=== PATIENT | male | born 1965 | race American Indian/Alaskan Native ===

== ENCOUNTER 2018-05-06 23:14 | Inpatient (IN) | payer MEDICAID ==
[2018-05-06] MEDS ORDERED: HYDROmorphone 1 MG/ML Syringe IVPUSH ONE (23:43)
--- NOTE | 2018-05-07 01:20 | EDM.PDOC ---
ED HPI GENERAL MEDICAL PROBLEM - General Chief Complaint: Abdominal Pain Stated Complaint: MED[facility] Time Seen by Provider: 05/06/18 23:20 Source of Information: Reports: Patient History Limitations: Reports: No Limitations - History of Present Illness INITIAL COMMENTS - FREE TEXT/NARRATIVE: pt arrived with severe abdomanal pain. This came on very suddenly this evening and he has had severe pain for about 4 hours. He is much more comfortable at this time. Onset: Today, Sudden Duration: Hour(s): Location: Reports: Abdomen Associated Symptoms: Reports: Nausea/Vomiting - Related Data Allergies Allergy/AdvReac Type Severity Reaction Status Date / Time ibuprofen Allergy Edema Verified 05/06/18 23:19 Home Meds: Home Meds Metoprolol Succinate [Toprol XL 100mg] 100 mg PO DAILY 05/06/18 [History] Omeprazole 20 mg PO DAILY 05/06/18 [History] amLODIPine [Norvasc] 2.5 mg PO DAILY 05/06/18 [History] clonazePAM [Klonopin] 0.5 mg PO DAILY PRN 05/06/18 [History] Past Medical History HEENT History: Reports: Hard of Hearing Other HEENT History: deaf left ear, constant nasal drip Cardiovascular History: Reports: High Cholesterol, Hypertension Other Cardiovascular History: abnormal EKG wanted him to do stress test on Sunday last week Other Respiratory History: easily fatigues and SOB with exertion Gastrointestinal History: Reports: GERD Musculoskeletal History: Reports: Arthritis, Other (See Below) Other Musculoskeletal History: fx tibia and fibula with pinning and plate Neurological History: Reports: Concussion Endocrine/Metabolic History: Reports: Obesity/BMI 30+ - Past Surgical History Cardiovascular Surgical History: Reports: None Other Musculoskeletal Surgeries/Procedures:: right shoulder pain, left hip pain Social & Family History - Family History Family Medical History: Noncontributory - Tobacco Use Smoking Status *Q: Former Smoker Used Tobacco, but Quit: Yes Month/Year Tobacco Last Used: 15 years Second Hand Smoke Exposure: Yes - Caffeine Use Caffeine Use: Reports: Coffee - Alcohol Use Days Per Week of Alcohol Use: 7 Number of Drinks Per Day: 5 Total Drinks Per Week: 35 - Recreational Drug Use Recreational Drug Use: No ED ROS GENERAL - Review of Systems Review Of Systems: See Below Constitutional: Reports: Fever, Chills, Malaise HEENT: Reports: No Symptoms Respiratory: Reports: No Symptoms Cardiovascular: Reports: No Symptoms Endocrine: Reports: No Symptoms GI/Abdominal: Reports: Abdominal Pain, Other ( sudden onset and very severe pain ) : Reports: No Symptoms ED EXAM, GI/ABD - Physical Exam Exam: See Below Text/Narrative:: pt arrived with very severe upper abdomanal pain. He had felt ok earlier in the pm/ He had chicken and rice for supper and was helping get some laundry done. He developed severe pain and this did not relent for about 4 hours. He is quite comfortable at this time. Exam Limited By: No Limitations General Appearance: Alert, Severe Distress Ears: Normal TMs Nose: Normal Inspection Throat/Mouth: Normal Inspection Head: Atraumatic Neck: Normal Inspection Respiratory/Chest: No Respiratory Distress Cardiovascular: Regular Rate, Rhythm GI/Abdominal Exam: Other ( very tender in the upper abdoman. ) (Male) Exam: Deferred Rectal (Males) Exam: Deferred Back Exam: Normal Inspection Extremities: Normal Inspection Course - Vital Signs Last Recorded V/S: Last Vital Signs Temp 37.6 C 05/07/18 06:07 Pulse 105 H 05/07/18 06:07 Resp 14 05/07/18 06:07 BP 109/64 05/07/18 06:07 Pulse Ox 92 L 05/07/18 02:33 - Orders/Labs/Meds Orders: Active Orders 24 hr Category Date Time Status Abdomen Ltd [US] Stat Exams 05/07/18 00:15 Taken Abdomen Pelvis w Cont [CT] Stat Exams 05/07/18 01:23 Taken Abdomen Series w Chest 1V [CR] Urgent Exams 05/07/18 00:01 Taken BABESIA MICROTI ANTIBODY PANEL Stat Lab 05/07/18 01:08 Stop Req CULTURE BLOOD [BC] Urgent Lab 05/07/18 03:00 Received CULTURE BLOOD [BC] Urgent Lab 05/07/18 03:05 Received DRUG SCREEN, URINE [URCHEM] Stat Lab 05/07/18 00:03 Ordered E. CHAFFEENSIS-HME (MONOCYTIC) Stat Lab 05/07/18 01:08 Stop Req LYME, TOTAL AB TEST/REFLEX Stat Lab 05/07/18 01:08 Stop Req UA W/MICROSCOPIC [URIN] Urgent Lab 05/07/18 00:05 Ordered Sodium Chloride 0.9% [Normal Saline] 1,000 ml Med 05/07/18 02:00 Active IV STAT Blood Culture x2 Reflex Set [OM.PC] Urgent Oth 05/07/18 02:53 Ordered Medication Orders Sodium Chloride (Normal Saline) 1,000 mls @ 300 mls/hr IV STAT JOSE Last Admin: 05/07/18 05:08 Dose: 300 mls/hr Infusion: 05/07/18 05:08 Dose: 300 mls/hr Admin: 05/07/18 02:00 Dose: 300 mls/hr Labs: Laboratory Tests 05/06/18 05/06/18 05/06/18 Range/Units 23:29 23:29 23:29 WBC 12.2 H (4.5-11.0) K/uL RBC 5.12 (4.30-5.90) M/uL Hgb 16.7 H (12.0-15.0) g/dL Hct 47.6 (40.0-54.0) % MCV 93 (80-98) fL MCH 33 H (27-31) pg MCHC 35 (32-36) % Plt Count 151 (150-400) K/uL Neut % (Auto) 93 H (36-66) % Lymph % (Auto) 6 L (24-44) % Republic % (Auto) 1 L (2-6) % Eos % (Auto) 0 L (2-4) % Baso % (Auto) 0 (0-1) % Sodium 138 L (140-148) mmol/L Potassium 3.9 (3.6-5.2) mmol/L Chloride 100 (100-108) mmol/L Carbon Dioxide 23 (21-32) mmol/L Anion Gap 18.9 H (5.0-14.0) mmol/L BUN 9 (7-18) mg/dL Creatinine 1.0 (0.8-1.3) mg/dL Est Cr Clr Drug Dosing 89.22 mL/min Estimated GFR (MDRD) > 60 (>60) Glucose 154 H (74-106) mg/dL Calcium 8.7 (8.5-10.1) mg/dL Total Bilirubin 2.4 H (0.2-1.0) mg/dL AST 268 H (15-37) U/L ALT 184 H (12-78) U/L Alkaline Phosphatase 126 H (46-116) U/L C-Reactive Protein (0.0-0.3) mg/dL Total Protein 7.9 (6.4-8.2) g/dL Albumin 3.8 (3.4-5.0) g/dL Globulin 4.1 H (2.3-3.5) g/dL Albumin/Globulin Ratio 0.9 L (1.2-2.2) Amylase 55 (25-115) U/L Lipase 130 (73-393) U/L Urine Color Urine Appearance Urine pH (4.5-8.0) Ur Specific Lackey (1.008-1.030) Urine Protein (NEGATIVE) mg/dL Urine Glucose (UA) (NEGATIVE) mg/dL Urine Ketones (NEGATIVE) mg/dL Urine Occult Blood (NEGATIVE) Urine Nitrite (NEGAITVE) Urine Bilirubin (NEGATIVE) Urine Urobilinogen (NORMAL) mg/dL Ur Leukocyte Esterase (NEGATIVE) Urine RBC (0-5) Urine WBC (0-5) Ur Epithelial Cells Amorphous Sediment Urine Bacteria Urine Mucus Urine Opiates Screen (NEGATIVE) Ur Oxycodone Screen (NEGATIVE) Urine Methadone Screen (NEGATIVE) Ur Propoxyphene Screen (NEGATIVE) Ur Barbiturates Screen (NEGATIVE) Ur Tricyclics Screen (NEGATIVE) Ur Phencyclidine Scrn (NEGATIVE) Ur Amphetamine Screen (NEGATIVE) U Methamphetamines Scrn (NEGATIVE) Urine MDMA Screen (NEGATIVE) U Benzodiazepines Scrn (NEGATIVE) U Cocaine Metab Screen (NEGATIVE) U Marijuana (THC) Screen (NEGATIVE) Ethyl Alcohol mg/dL 05/07/18 05/07/18 05/07/18 Range/Units 00:03 00:03 00:05 WBC (4.5-11.0) K/uL RBC (4.30-5.90) M/uL Hgb (12.0-15.0) g/dL Hct (40.0-54.0) % MCV (80-98) fL MCH (27-31) pg MCHC (32-36) % Plt Count (150-400) K/uL Neut % (Auto) (36-66) % Lymph % (Auto) (24-44) % Republic % (Auto) (2-6) % Eos % (Auto) (2-4) % Baso % (Auto) (0-1) % Sodium (140-148) mmol/L Potassium (3.6-5.2) mmol/L Chloride (100-108) mmol/L Carbon Dioxide (21-32) mmol/L Anion Gap (5.0-14.0) mmol/L BUN (7-18) mg/dL Creatinine (0.8-1.3) mg/dL Est Cr Clr Drug Dosing mL/min Estimated GFR (MDRD) (>60) Glucose (74-106) mg/dL Calcium (8.5-10.1) mg/dL Total Bilirubin (0.2-1.0) mg/dL AST (15-37) U/L ALT (12-78) U/L Alkaline Phosphatase (46-116) U/L C-Reactive Protein (0.0-0.3) mg/dL Total Protein (6.4-8.2) g/dL Albumin (3.4-5.0) g/dL Globulin (2.3-3.5) g/dL Albumin/Globulin Ratio (1.2-2.2) Amylase (25-115) U/L Lipase (73-393) U/L Urine Color Yellow Urine Appearance Clear Urine pH 5.0 (4.5-8.0) Ur Specific Lackey 1.020 (1.008-1.030) Urine Protein Negative (NEGATIVE) mg/dL Urine Glucose (UA) Normal (NEGATIVE) mg/dL Urine Ketones Negative (NEGATIVE) mg/dL Urine Occult Blood Negative (NEGATIVE) Urine Nitrite Negative (NEGAITVE) Urine Bilirubin Small (NEGATIVE) Urine Urobilinogen 4 (NORMAL) mg/dL Ur Leukocyte Esterase Negative (NEGATIVE) Urine RBC 0-5 (0-5) Urine WBC 0-5 (0-5) Ur Epithelial Cells Few Amorphous Sediment Not seen Urine Bacteria Few Urine Mucus Not seen Urine Opiates Screen Presumptive positive H (NEGATIVE) Ur Oxycodone Screen Negative (NEGATIVE) Urine Methadone Screen Negative (NEGATIVE) Ur Propoxyphene Screen Negative (NEGATIVE) Ur Barbiturates Screen Negative (NEGATIVE) Ur Tricyclics Screen Negative (NEGATIVE) Ur Phencyclidine Scrn Negative (NEGATIVE) Ur Amphetamine Screen Negative (NEGATIVE) U Methamphetamines Scrn Presumptive positive H (NEGATIVE) Urine MDMA Screen Negative (NEGATIVE) U Benzodiazepines Scrn Negative (NEGATIVE) U Cocaine Metab Screen Negative (NEGATIVE) U Marijuana (THC) Screen Negative (NEGATIVE) Ethyl Alcohol 132 mg/dL 07/24/18 Range/Units 02:54 WBC (4.5-11.0) K/uL RBC (4.30-5.90) M/uL Hgb (12.0-15.0) g/dL Hct (40.0-54.0) % MCV (80-98) fL MCH (27-31) pg MCHC (32-36) % Plt Count (150-400) K/uL Neut % (Auto) (36-66) % Lymph % (Auto) (24-44) % Republic % (Auto) (2-6) % Eos % (Auto) (2-4) % Baso % (Auto) (0-1) % Sodium (140-148) mmol/L Potassium (3.6-5.2) mmol/L Chloride (100-108) mmol/L Carbon Dioxide (21-32) mmol/L Anion Gap (5.0-14.0) mmol/L BUN (7-18) mg/dL Creatinine (0.8-1.3) mg/dL Est Cr Clr Drug Dosing mL/min Estimated GFR (MDRD) (>60) Glucose (74-106) mg/dL Calcium (8.5-10.1) mg/dL Total Bilirubin (0.2-1.0) mg/dL AST (15-37) U/L ALT (12-78) U/L Alkaline Phosphatase (46-116) U/L C-Reactive Protein 0.26 (0.0-0.3) mg/dL Total Protein (6.4-8.2) g/dL Albumin (3.4-5.0) g/dL Globulin (2.3-3.5) g/dL Albumin/Globulin Ratio (1.2-2.2) Amylase (25-115) U/L Lipase (73-393) U/L Urine Color Urine Appearance Urine pH (4.5-8.0) Ur Specific Lackey (1.008-1.030) Urine Protein (NEGATIVE) mg/dL Urine Glucose (UA) (NEGATIVE) mg/dL Urine Ketones (NEGATIVE) mg/dL Urine Occult Blood (NEGATIVE) Urine Nitrite (NEGAITVE) Urine Bilirubin (NEGATIVE) Urine Urobilinogen (NORMAL) mg/dL Ur Leukocyte Esterase (NEGATIVE) Urine RBC (0-5) Urine WBC (0-5) Ur Epithelial Cells Amorphous Sediment Urine Bacteria Urine Mucus Urine Opiates Screen (NEGATIVE) Ur Oxycodone Screen (NEGATIVE) Urine Methadone Screen (NEGATIVE) Ur Propoxyphene Screen (NEGATIVE) Ur Barbiturates Screen (NEGATIVE) Ur Tricyclics Screen (NEGATIVE) Ur Phencyclidine Scrn (NEGATIVE) Ur Amphetamine Screen (NEGATIVE) U Methamphetamines Scrn (NEGATIVE) Urine MDMA Screen (NEGATIVE) U Benzodiazepines Scrn (NEGATIVE) U Cocaine Metab Screen (NEGATIVE) U Marijuana (THC) Screen (NEGATIVE) Ethyl Alcohol mg/dL Meds: Medications Generic Name Dose Route Start Last Admin Trade Name Freq PRN Reason Stop Dose Admin Sodium Chloride 1,000 mls @ 300 mls/hr 05/07/18 02:00 05/07/18 05:08 Normal Saline IV 300 mls/hr STAT JOSE Administration Discontinued Medications Generic Name Dose Route Start Last Admin Trade Name Freq PRN Reason Stop Dose Admin Hydromorphone HCl 1 mg 05/06/18 23:43 05/06/18 23:54 Dilaudid IVPUSH 05/06/18 23:44 1 mg ONETIME ONE Administration Sodium Chloride 85 mls @ 4 mls/sec 05/07/18 01:32 05/07/18 01:48 Normal Saline IV 05/07/18 01:33 4 mls/sec ASDIRECTED STA Administration Aztreonam 1 gm/ Sodium 50 mls @ 100 mls/hr 05/07/18 02:55 05/07/18 03:23 Chloride IV 05/07/18 03:24 100 mls/hr ONETIME ONE Administration Clindamycin Phosphate 300 mg/ 52 mls @ 150 mls/hr 05/07/18 02:55 05/07/18 03: 04 Sodium Chloride IV 05/07/18 03:15 150 mls/hr ONETIME ONE Administration Iopamidol 150 ml 05/07/18 01:32 05/07/18 01:48 Isovue-300 (61%) IV 05/07/18 01:33 150 ml . DIRECTED STA Administration - Re-Assessments/Exams Free Text/Narrative Re-Assessment/Exam: 05/07/18 03:00 us showed a borderline GB wall thickening, Gb is large. No definite stones were seen. He has evidence of a fatty liver. Departure - Departure Time of Disposition: 06:55 Disposition: Admitted As Inpatient 66 Condition: Fair Clinical Impression: Acute cholecystitis, Elevated liver enzymes - Discharge Information Referrals: PCP,None [Primary Care Provider] - Forms: ED Department Discharge Care Plan Goals: admit to Dr Rust - My Orders Last 24 Hours: My Active Orders 05/07/18 00:01 Abdomen Series w Chest 1V [CR] Urgent 05/07/18 00:03 DRUG SCREEN, URINE [URCHEM] Stat 05/07/18 00:05 UA W/MICROSCOPIC [URIN] Urgent 05/07/18 00:15 Abdomen Ltd [US] Stat 05/07/18 01:08 BABESIA MICROTI ANTIBODY PANEL Stat E. CHAFFEENSIS-HME (MONOCYTIC) Stat LYME, TOTAL AB TEST/REFLEX Stat 05/07/18 01:23 Abdomen Pelvis w Cont [CT] Stat 05/07/18 02:00 Sodium Chloride 0.9% [Normal Saline] 1,000 ml IV STAT 05/07/18 02:53 Blood Culture x2 Reflex Set [OM.PC] Urgent 05/07/18 03:00 CULTURE BLOOD [BC] Urgent 05/07/18 03:05 CULTURE BLOOD [BC] Urgent - Assessment/Plan Last 24 Hours: My Active Orders 05/07/18 00:01 Abdomen Series w Chest 1V [CR] Urgent 05/07/18 00:03 DRUG SCREEN, URINE [URCHEM] Stat 05/07/18 00:05 UA W/MICROSCOPIC [URIN] Urgent 05/07/18 00:15 Abdomen Ltd [US] Stat 05/07/18 01:08 BABESIA MICROTI ANTIBODY PANEL Stat E. CHAFFEENSIS-HME (MONOCYTIC) Stat LYME, TOTAL AB TEST/REFLEX Stat 05/07/18 01:23 Abdomen Pelvis w Cont [CT] Stat 05/07/18 02:00 Sodium Chloride 0.9% [Normal Saline] 1,000 ml IV STAT 05/07/18 02:53 Blood Culture x2 Reflex Set [OM.PC] Urgent 05/07/18 03:00 CULTURE BLOOD [BC] Urgent 05/07/18 03:05 CULTURE BLOOD [BC] Urgent
[2018-05-07] MEDS ORDERED: Iopamidol 612 MG/ML 150 ML Bottle IV STA (01:32)
[2018-05-07] MEDS: Sodium Chloride 0.9% 1,000 ML IV SCH ×2 (02:00→05:08)
[2018-05-07] MEDS: Dextrose 5%-Lactated Ringers 1,000 ML IV SCH ×2 (08:00→16:45)
[2018-05-07] MEDS ORDERED: HYDROmorphone/Normal Saline 15 MG/30 ML PCA IV PRN (08:22)
[2018-05-07] MEDS ORDERED: Naloxone 0.4 MG/ML SDV IV PRN (08:22)
[2018-05-07] MEDS ORDERED: ClonazePAM 0.5 MG Tab PO PRN (08:23)
[2018-05-07] MEDS ORDERED: Ondansetron 4 MG/2 ML SDV IVPUSH PRN (08:23)
--- NOTE | 2018-05-07 08:52 | CR ---
Abdomen Series w Chest 1V CLINICAL HISTORY: Upper abdominal pain FINDINGS: There is breathing motion artifact. There is less than optimal inspiration which exaggerate s lung markings and heart size. No free air is seen. The there are scattered air-filled loops of smal l bowel in a nonspecific pattern. IMPRESSION: Scattered air-filled loops of small bowel in a nonspecific pattern Less than optimal study with poor respiratory level as well as breathing motion artifact
--- NOTE | 2018-05-07 08:57 | US ---
Abdomen Ltd CLINICAL HISTORY: Upper abdominal pain COMPARISON: None. TECHNIQUE: Real-time images were obtained through the right upper quadrant. FINDINGS: The liver is free of mass or biliary dilatation. There is increased parenchymal echogenicit y. The gallbladder is distended. There is some biliary sludge. No wall thickening is identified.. The common bile duct measures 8 mm. The pancreas is is obscured by bowel gas. The right kidney has a nor mal contour. The IVC is obscured. Impression:: Mildly distended gallbladder with some biliary sludge. No stones are seen Common bile duct is upper limits of normal size Pancreas and distal CBD is obscured Fatty infiltration of the liver
[2018-05-07] MEDS ORDERED: Metoprolol Succinate 50 MG Tab.ER PO SCH (09:00)
[2018-05-07] MEDS: Pantoprazole 40 MG Vial IV SCH (09:56)
[2018-05-07] MEDS: amLODIPine 5 MG Tab PO SCH (09:57)
[2018-05-07] MEDS: Ampicillin/Sulbactam Na 3 GM in Sodium Chloride 0.9% 100 ML IV SCH ×3 (09:59→21:11)
[2018-05-07] MEDS ORDERED: cloNIDine 0.1 MG Tab PO SCH (12:00)
--- NOTE | 2018-05-07 12:05 | PCM.CONS ---
H&P History of Present Illness - General Date of Service: 05/07/18 Admit Problem/Dx: Admission Diagnosis/Problem Admission Diagnosis/Problem Abdominal pain Source of Information: Patient, RN Notes Reviewed History Limitations: Reports: No Limitations - History of Present Illness Initial Comments - Free Text/Narative: Mr. Amezquita is a 52-year-old gentleman who I been asked to see by Dr. Rust for further suggestions concerning evaluation and management of abdominal pain. He reports that recently he has noted increased shortness of breath with exertion and decrease in his exercise tolerance. He been seen and evaluated in [place] at the [facility] clinic, exercise Cardiolite study had been recommended but has not yet been obtained. Yesterday he reported onset of lower chest pain in the early evening. Pain became more intense and more centered in the upper abdomen. It was associated with nausea but no vomiting. Pain was initially described as a burning sensation that and became a more intense ache with cramping quality. Pain is since resolved and not recurred since admission. He still has his gallbladder, ultrasound and CT showed evidence of distention but no obvious wall thickening. He also reports a history of ongoing alcohol use at least 8 cans of beer per day and previous history of alcohol withdrawal. - Related Data Allergies/Adverse Reactions: Allergies Allergy/AdvReac Type Severity Reaction Status Date / Time ibuprofen Allergy Edema Verified 05/06/18 23:19 Home Medications: Home Meds Metoprolol Succinate [Toprol XL 100mg] 100 mg PO DAILY 05/06/18 [History] Omeprazole 20 mg PO DAILY 05/06/18 [History] amLODIPine [Norvasc] 2.5 mg PO DAILY 05/06/18 [History] clonazePAM [Klonopin] 0.5 mg PO DAILY PRN 05/06/18 [History] cloNIDine [Catapres] 0.1 mg PO WEEKLY 05/07/18 [History] Past Medical History HEENT History: Reports: Hard of Hearing Other HEENT History: deaf left ear, constant nasal drip Cardiovascular History: Reports: High Cholesterol, Hypertension Other Cardiovascular History: abnormal EKG wanted him to do stress test on Sunday last week Other Respiratory History: easily fatigues and SOB with exertion Gastrointestinal History: Reports: GERD Musculoskeletal History: Reports: Arthritis, Other (See Below) Other Musculoskeletal History: fx tibia and fibula with pinning and plate Neurological History: Reports: Concussion Endocrine/Metabolic History: Reports: Obesity/BMI 30+ - Infectious Disease History Infectious Disease History: Reports: Chicken Pox, Measles - Past Surgical History Cardiovascular Surgical History: Reports: None Other Musculoskeletal Surgeries/Procedures:: right shoulder pain, left hip pain Social & Family History - Family History Family Medical History: Noncontributory Cardiac: Reports: Heart Failure GI: Reports: Cholelithiasis Endocrine/Metabolic: Reports: Diabetes, type II - Tobacco Use Smoking Status *Q: Never Smoker Used Tobacco, but Quit: Yes Month/Year Tobacco Last Used: 15 years Second Hand Smoke Exposure: No - Caffeine Use Caffeine Use: Reports: Soda - Alcohol Use Days Per Week of Alcohol Use: 7 Number of Drinks Per Day: 9 Total Drinks Per Week: 63 Date of Last Drink: 05/06/18 Time of Last Drink: 18:30 - Recreational Drug Use Recreational Drug Use: No H&P Review of Systems - Review of Systems: Review Of Systems: See Below General: Reports: Fever, Chills, Weakness Pulmonary: Reports: Shortness of Breath. Denies: Wheezing, Pleuritic Chest Pain , Cough, Sputum, Hemoptysis Cardiovascular: Reports: Dyspnea on Exertion. Denies: Chest Pain, Palpitations , Orthopnea, PND, Edema, Lightheadedness Gastrointestinal: Reports: Abdominal Pain, Distension, Nausea. Denies: Black Stool, Bloody Stool, Constipation, Diarrhea, Difficulty Swallowing, Hematemesis , Vomiting Genitourinary: Reports: No Symptoms Skin: Reports: No Symptoms Exam - Exam Exam: See Below - Vital Signs Vital Signs: Last Vital Signs Temp 100 F 05/07/18 11:34 Pulse 94 05/07/18 11:34 Resp 18 05/07/18 11:34 BP 139/79 05/07/18 11:34 Pulse Ox 95 05/07/18 11:34 Weight: 272 lb 3.205 oz - Exam General: Alert, Oriented, Cooperative, Mild Distress Neck: Supple, Trachea Midline, +2 Carotid Pulse wo Bruit Lungs: Clear to Auscultation, Normal Respiratory Effort Cardiovascular: Regular Rate, Regular Rhythm, Normal S1, Normal S2. No: Systolic Murmur, Diastolic Murmur GI/Abdominal Exam: Soft, No Organomegaly, Distended, Tender. No: Guarding, Rigid, Rebound Back Exam: Normal Inspection, Full Range of Motion Extremities: Non-Tender, No Pedal Edema Skin: Warm, Dry, Intact - Patient Data Lab Results Last 24 hrs: Laboratory Results - last 24 hr 05/06/18 05/06/18 05/06/18 Range/Units 23:29 23:29 23:29 WBC 12.2 H (4.5-11.0) K/uL RBC 5.12 (4.30-5.90) M/uL Hgb 16.7 H (12.0-15.0) g/dL Hct 47.6 (40.0-54.0) % MCV 93 (80-98) fL MCH 33 H (27-31) pg MCHC 35 (32-36) % Plt Count 151 (150-400) K/uL Neut % (Auto) 93 H (36-66) % Lymph % (Auto) 6 L (24-44) % [place] % (Auto) 1 L (2-6) % Eos % (Auto) 0 L (2-4) % Baso % (Auto) 0 (0-1) % Sodium 138 L (140-148) mmol/L Potassium 3.9 (3.6-5.2) mmol/L Chloride 100 (100-108) mmol/L Carbon Dioxide 23 (21-32) mmol/L Anion Gap 18.9 H (5.0-14.0) mmol/L BUN 9 (7-18) mg/dL Creatinine 1.0 (0.8-1.3) mg/dL Est Cr Clr Drug Dosing 89.22 mL/min Estimated GFR (MDRD) > 60 (>60) Glucose 154 H (74-106) mg/dL Calcium 8.7 (8.5-10.1) mg/dL Phosphorus (2.5-4.9) mg/dL Magnesium (1.8-2.4) mg/dL Total Bilirubin 2.4 H (0.2-1.0) mg/dL AST 268 H (15-37) U/L ALT 184 H (12-78) U/L Alkaline Phosphatase 126 H (46-116) U/L C-Reactive Protein (0.0-0.3) mg/dL Total Protein 7.9 (6.4-8.2) g/dL Albumin 3.8 (3.4-5.0) g/dL Globulin 4.1 H (2.3-3.5) g/dL Albumin/Globulin Ratio 0.9 L (1.2-2.2) Amylase 55 (25-115) U/L Lipase 130 (73-393) U/L Urine Color Urine Appearance Urine pH (4.5-8.0) Ur Specific [place] (1.008-1.030) Urine Protein (NEGATIVE) mg/dL Urine Glucose (UA) (NEGATIVE) mg/dL Urine Ketones (NEGATIVE) mg/dL Urine Occult Blood (NEGATIVE) Urine Nitrite (NEGAITVE) Urine Bilirubin (NEGATIVE) Urine Urobilinogen (NORMAL) mg/dL Ur Leukocyte Esterase (NEGATIVE) Urine RBC (0-5) Urine WBC (0-5) Ur Epithelial Cells Amorphous Sediment Urine Bacteria Urine Mucus Urine Opiates Screen (NEGATIVE) Ur Oxycodone Screen (NEGATIVE) Urine Methadone Screen (NEGATIVE) Ur Propoxyphene Screen (NEGATIVE) Ur Barbiturates Screen (NEGATIVE) Ur Tricyclics Screen (NEGATIVE) Ur Phencyclidine Scrn (NEGATIVE) Ur Amphetamine Screen (NEGATIVE) U Methamphetamines Scrn (NEGATIVE) Urine MDMA Screen (NEGATIVE) U Benzodiazepines Scrn (NEGATIVE) U Cocaine Metab Screen (NEGATIVE) U Marijuana (THC) Screen (NEGATIVE) Ethyl Alcohol mg/dL 05/07/18 05/07/18 05/07/18 Range/Units 00:03 00:03 00:05 WBC (4.5-11.0) K/uL RBC (4.30-5.90) M/uL Hgb (12.0-15.0) g/dL Hct (40.0-54.0) % MCV (80-98) fL MCH (27-31) pg MCHC (32-36) % Plt Count (150-400) K/uL Neut % (Auto) (36-66) % Lymph % (Auto) (24-44) % [place] % (Auto) (2-6) % Eos % (Auto) (2-4) % Baso % (Auto) (0-1) % Sodium (140-148) mmol/L Potassium (3.6-5.2) mmol/L Chloride (100-108) mmol/L Carbon Dioxide (21-32) mmol/L Anion Gap (5.0-14.0) mmol/L BUN (7-18) mg/dL Creatinine (0.8-1.3) mg/dL Est Cr Clr Drug Dosing mL/min Estimated GFR (MDRD) (>60) Glucose (74-106) mg/dL Calcium (8.5-10.1) mg/dL Phosphorus (2.5-4.9) mg/dL Magnesium (1.8-2.4) mg/dL Total Bilirubin (0.2-1.0) mg/dL AST (15-37) U/L ALT (12-78) U/L Alkaline Phosphatase (46-116) U/L C-Reactive Protein (0.0-0.3) mg/dL Total Protein (6.4-8.2) g/dL Albumin (3.4-5.0) g/dL Globulin (2.3-3.5) g/dL Albumin/Globulin Ratio (1.2-2.2) Amylase (25-115) U/L Lipase (73-393) U/L Urine Color Yellow Urine Appearance Clear Urine pH 5.0 (4.5-8.0) Ur Specific [place] 1.020 (1.008-1.030) Urine Protein Negative (NEGATIVE) mg/dL Urine Glucose (UA) Normal (NEGATIVE) mg/dL Urine Ketones Negative (NEGATIVE) mg/dL Urine Occult Blood Negative (NEGATIVE) Urine Nitrite Negative (NEGAITVE) Urine Bilirubin Small (NEGATIVE) Urine Urobilinogen 4 (NORMAL) mg/dL Ur Leukocyte Esterase Negative (NEGATIVE) Urine RBC 0-5 (0-5) Urine WBC 0-5 (0-5) Ur Epithelial Cells Few Amorphous Sediment Not seen Urine Bacteria Few Urine Mucus Not seen Urine Opiates Screen Presumptive positive H (NEGATIVE) Ur Oxycodone Screen Negative (NEGATIVE) Urine Methadone Screen Negative (NEGATIVE) Ur Propoxyphene Screen Negative (NEGATIVE) Ur Barbiturates Screen Negative (NEGATIVE) Ur Tricyclics Screen Negative (NEGATIVE) Ur Phencyclidine Scrn Negative (NEGATIVE) Ur Amphetamine Screen Negative (NEGATIVE) U Methamphetamines Scrn Presumptive positive H (NEGATIVE) Urine MDMA Screen Negative (NEGATIVE) U Benzodiazepines Scrn Negative (NEGATIVE) U Cocaine Metab Screen Negative (NEGATIVE) U Marijuana (THC) Screen Negative (NEGATIVE) Ethyl Alcohol 132 mg/dL 05/07/18 05/07/18 Range/Units 02:54 08:20 WBC (4.5-11.0) K/uL RBC (4.30-5.90) M/uL Hgb (12.0-15.0) g/dL Hct (40.0-54.0) % MCV (80-98) fL MCH (27-31) pg MCHC (32-36) % Plt Count (150-400) K/uL Neut % (Auto) (36-66) % Lymph % (Auto) (24-44) % [place] % (Auto) (2-6) % Eos % (Auto) (2-4) % Baso % (Auto) (0-1) % Sodium (140-148) mmol/L Potassium (3.6-5.2) mmol/L Chloride (100-108) mmol/L Carbon Dioxide (21-32) mmol/L Anion Gap (5.0-14.0) mmol/L BUN (7-18) mg/dL Creatinine (0.8-1.3) mg/dL Est Cr Clr Drug Dosing mL/min Estimated GFR (MDRD) (>60) Glucose (74-106) mg/dL Calcium (8.5-10.1) mg/dL Phosphorus 1.4 L (2.5-4.9) mg/dL Magnesium 1.3 L (1.8-2.4) mg/dL Total Bilirubin (0.2-1.0) mg/dL AST (15-37) U/L ALT (12-78) U/L Alkaline Phosphatase (46-116) U/L C-Reactive Protein 0.26 (0.0-0.3) mg/dL Total Protein (6.4-8.2) g/dL Albumin (3.4-5.0) g/dL Globulin (2.3-3.5) g/dL Albumin/Globulin Ratio (1.2-2.2) Amylase (25-115) U/L Lipase (73-393) U/L Urine Color Urine Appearance Urine pH (4.5-8.0) Ur Specific [place] (1.008-1.030) Urine Protein (NEGATIVE) mg/dL Urine Glucose (UA) (NEGATIVE) mg/dL Urine Ketones (NEGATIVE) mg/dL Urine Occult Blood (NEGATIVE) Urine Nitrite (NEGAITVE) Urine Bilirubin (NEGATIVE) Urine Urobilinogen (NORMAL) mg/dL Ur Leukocyte Esterase (NEGATIVE) Urine RBC (0-5) Urine WBC (0-5) Ur Epithelial Cells Amorphous Sediment Urine Bacteria Urine Mucus Urine Opiates Screen (NEGATIVE) Ur Oxycodone Screen (NEGATIVE) Urine Methadone Screen (NEGATIVE) Ur Propoxyphene Screen (NEGATIVE) Ur Barbiturates Screen (NEGATIVE) Ur Tricyclics Screen (NEGATIVE) Ur Phencyclidine Scrn (NEGATIVE) Ur Amphetamine Screen (NEGATIVE) U Methamphetamines Scrn (NEGATIVE) Urine MDMA Screen (NEGATIVE) U Benzodiazepines Scrn (NEGATIVE) U Cocaine Metab Screen (NEGATIVE) U Marijuana (THC) Screen (NEGATIVE) Ethyl Alcohol mg/dL Result Diagrams: 05/06/18 23:29 05/06/18 23:29 Consult PN Assessment/Plan Problem List Initiated/Reviewed/Updated: Yes My Orders Last 24 Hours: My Active Orders 05/07/18 12:00 Gabapentin [Neurontin] 400 mg PO Q8H cloNIDine [Catapres] 0.1 mg PO WEEKLY Plan: ASSESSMENT AND RECOMMENDATIONS UPPER ABDOMINAL PAIN-most likely secondary to gallbladder disease, also possible would be gastric or duodenal ulcer or inflammation. -CCK stimulated HIDA scan in a.m. -Protonix 40 mg IV daily DECREASED EXERCISE TOLERANCE-recent history of shortness of breath with decreased exercise tolerance. He does have risk factors for coronary artery disease including hypertension, hypercholesterolemia, and a positive family history. Would plan to hold on any consideration of surgery until cardiac status has been further evaluated. -Exercise Cardiolite study ELEVATED LIVER TESTS-patient reports that they have been elevated on previous laboratory draws, will attempt to obtain lab results from recent clinic visits. Possibly secondary to gallbladder disease and possible obstructing stone versus chronic liver disease related to his long-standing alcohol abuse. -Recheck labs in a.m. -Obtain recent outpatient laboratory test results from [facility] clinic ALCOHOL ABUSE -Gabapentin 400 mg by mouth every 8 hours 4 days, then 200 mg by mouth every 8 hours 4 days -Monitor closely for any evidence of alcohol withdrawal HYPERTENSION -Continue outpatient antihypertensive therapy Requesting Provider: CHENCHO Date Consult Requested: 05/07/18 Reason for Consult: Abdominal pain, elevated liver enzymes Patient History Reviewed: Yes
[2018-05-07] MEDS: Gabapentin 400 MG Cap PO SCH ×2 (13:39→21:11)
[2018-05-07] MEDS: Acetaminophen 325 MG Tab PO PRN ×2 (14:37→19:32)
[2018-05-07] MEDS ORDERED: Ketotifen 0.025% Ophth Soln 5 ML Bottle EYEBOTH PRN (15:00)
[2018-05-07] MEDS ORDERED: Non-Formulary Medication 1 Each (Amlodipine [Norvasc] 2.5 MG) PO SCH (15:15)
[2018-05-07] MEDS ORDERED: Hypromellose 0.4% Ophth Soln 15 ML Bottle EYEBOTH PRN (15:30)
[2018-05-07] MEDS ORDERED: Metoprolol Succinate 50 MG Tab.ER PO ONE (15:30)
[2018-05-07] MEDS: Loratadine 10 MG Tab PO SCH (16:51)
[2018-05-07] MEDS: Thiamine 100 MG Tab PO SCH (16:51)
[2018-05-07] MEDS ORDERED: LORazepam 2 MG/ML SDV IVPUSH ONE (19:56)
[2018-05-07] MEDS ORDERED: cloNIDine 0.1 MG Tab PO PRN (20:11)
[2018-05-07] MEDS ORDERED: MVI, Adult with Vitamin K 10 ML, Thiamine 100 MG, Folic Acid 1 MG, Magnesium Sulfate 2 ... IV ONE ×5 (20:11)
--- NOTE | 2018-05-07 20:22 | PCM.SN ---
- Free Text/Narrative Note: time: 20:00 call from [address] [place] [address] O: Mr. Amezquita is experiencing tremors and shaking. He reports daily consumption of alcohol products vital signs stable 38.4-84-17 b/p 149/77 o2 sat 95% A: Alcohol withdrawal P: give Ativan 1 mg IV now, then start Alcohol Withdrawal orders. monitor closely.
[2018-05-08] MEDS: Dextrose 5%-Lactated Ringers 1,000 ML IV SCH ×3 (01:49→22:34)
[2018-05-08] MEDS: Ampicillin/Sulbactam Na 3 GM in Sodium Chloride 0.9% 100 ML IV SCH ×4 (03:10→21:57)
[2018-05-08] MEDS: Acetaminophen 325 MG Tab PO PRN ×3 (03:19→19:46)
[2018-05-08] MEDS: Gabapentin 400 MG Cap PO SCH ×3 (06:58→21:57)
[2018-05-08] MEDS ORDERED: MVI, Adult with Vitamin K 10 ML, Thiamine 100 MG, Folic Acid 1 MG, Magnesium Sulfate 2 ... IV ONE ×5 (08:00)
[2018-05-08] MEDS ORDERED: Metoprolol Succinate 50 MG Tab.ER PO SCH (09:00)
[2018-05-08] MEDS: LORazepam 2 MG/ML SDV IV SCH ×2 (09:09→11:03)
[2018-05-08] MEDS: Pantoprazole 40 MG Vial IV SCH (09:16)
--- NOTE | 2018-05-08 09:32 | CONS ---
DATE OF SERVICE: 05/07/2018 REFERRING PHYSICIAN: CONSULTING PHYSICIAN: Patricia Jean Baptiste PA-C HISTORY OF PRESENT ILLNESS: Jesica Amezquita is a 52-year-old male who presented to the ER yesterday 05/07/2018 with upper abdominal pain. Colby Rust MD saw him in the emergency room and consulted Dash James MD for cardiac evaluation. Jesica states that he was at his daughter's, washing clothes and developed an increased pain in his upper abdomen that radiated around to the right and left part of his chest and he states the pain gradually increased and he did come into the emergency room. Prior to this, he saw his primary care provider at [place] at [facility] for shortness of breath with exertion and excessive fatigue, but no pain-like that he had at the time of admission. He was scheduled for a stress test this coming week through his primary care provider. He states that currently he still has some upper abdominal lower chest pain. He said it is a burning achy cramping, but the pressure that was there is not as prevalent. He did have a gallbladder workup, ultrasound and CT. His sisters both have had their gallbladders out, so he voices concern of his gallbladder. ALLERGIES: IBUPROFEN. HOME MEDICATIONS: 1. Toprol-XL 100 mg p.o. daily. 2. Omeprazole 20 mg p.o. daily. 3. Norvasc 2.5 mg p.o. daily. 4. Clonazepam 0.5 mg p.o. daily p.r.n. anxiety. 5. Catapres 0.1 mg p.o. weekly. SOCIAL HISTORY: Does not smoke. Caffeine and carbonation drinks, 1-2 sodas a day. Alcohol, drinks 8 cans of beer per day and history of alcohol withdrawal. Does not use any recreational drugs. FAMILY HISTORY: Noncontributory with exception of gallbladder disease, diabetes type 2, and heart disease resulting in heart failure. REVIEW OF SYSTEMS: GENERAL: Weight has been stable. Reports fever, chills, weakness. No night sweats. HEENT: Negative. Does have some hard hearing. His left ear is deaf. Reports a lot of allergies which causes a runny nose. CARDIOVASCULAR: Reports cholesterol, hypertension. He also had an abnormal EKG at [facility] last week. Shortness of breath on exertion. No chest pain, irregular heartbeat. RESPIRATORY: Reports shortness of breath with exertion and unable to do much physical activity without becoming short of breath and tired. No cough. GI: Reports GERD. No nausea, vomiting, diarrhea, constipation, red or black stools. Reports upper abdominal pain, bloating, nausea. : Negative. MUSCULOSKELETAL: Reports arthritis, joint pain. NEUROLOGICAL: No headaches, dizziness, loss of coordination. Does have a history of a concussion. ENDOCRINE: No history of diabetes. SKIN: No changes in moles or birthmarks. PSYCHIATRIC: Negative for depression. Does have history of daily alcohol use. Remainder of review of systems negative for any pertinent positives and negatives. PAST SURGICAL HISTORY: Fractured tibia and fibular requiring pin and plate in it. OBJECTIVE: GENERAL: Jesica Amezquita is a pleasant 52-year-old male. VITAL SIGNS: Height is 5 feet 10 inches. Weight is 272 pounds. TPR 99.7, 80, 20, blood pressure 159/86. HEENT: Negative. NECK: Supple. HEART: Regular rate and rhythm. LUNGS: Clear. ABDOMEN: Obese. Tenderness in the mid epigastric, right and left abdominal quadrants. Difficult to palpate any liver enlargement or any hepatomegaly due to body habitus. : Deferred. EXTREMITIES: Without peripheral edema. Full range of motion. NEURO: Cranial nerves 2 through 12 intact. PSYCHIATRIC: Mood and affect appropriate. ASSESSMENT: 1. Upper abdominal pain. 2. Decreased exercise tolerance. 3. Elevated liver function tests. 4. Alcohol abuse. 5. Hypertension. PLAN: 1. Check CBC, CMP, phos, amylase and lipase in a.m., bilirubin this morning was 5.6. 2. Magnesium 2 g IV q.6 hours x72 hours. 3. K-Phos 60 millimoles IV today. 4. Continue good pulmonary toilet. 5. Cardiolite study scheduled for tomorrow and HIDA scan scheduled this a.m. to call Colby Rust MD with HIDA scan this morning after it is completed. Patricia Jean Baptiste PA-C /[phone]
[2018-05-08] MEDS: Magnesium Sulfate/Water 2 GM in Premix Bag 1 BAG IV SCH ×3 (10:30→21:59)
--- NOTE | 2018-05-08 10:41 | PCM.CONSN ---
- General Info Date of Service: 05/08/18 Subjective Update: Mr. Amezquita has felt improved since admission with less abdominal pain and no further nausea or vomiting. INR today was within normal range but his bilirubin has increased to above 5. Alkaline phosphatase remains normal and AST ALT are moderately elevated. Vital signs have been stable and he has remained afebrile. Functional Status: Reports: Tolerating Diet, Urinating - Review of Systems General: Reports: Weakness. Denies: Fever, Chills Pulmonary: Reports: No Symptoms Cardiovascular: Reports: No Symptoms Gastrointestinal: Reports: Abdominal Pain. Denies: Diarrhea, Difficulty Swallowing, Nausea, Vomiting Musculoskeletal: Reports: No Symptoms - Patient Data Vitals - Most Recent: Last Vital Signs Temp 99.7 F 05/08/18 07:42 Pulse 80 05/08/18 07:42 Resp 20 05/08/18 07:42 BP 159/86 H 05/08/18 07:42 Pulse Ox 96 05/08/18 07:42 Weight - Most Recent: 272 lb 3.205 oz I&O - Last 24 Hours: Intake & Output 05/07/18 05/08/18 05/08/18 22:59 06:59 14:59 Intake Total 2446 1756 Output Total 1425 1100 375 Balance 1021 656 -375 Lab Results Last 24 Hours: Laboratory Results - last 24 hr 05/08/18 05/08/18 05/08/18 Range/Units 04:30 04:30 04:30 WBC 13.3 H (4.5-11.0) K/uL RBC 4.52 (4.30-5.90) M/uL Hgb 14.6 D (12.0-15.0) g/dL Hct 41.9 (40.0-54.0) % MCV 93 (80-98) fL MCH 32 H (27-31) pg MCHC 35 (32-36) % Plt Count 103 L (150-400) K/uL PT (9.5-12.0) sec INR (0.80-1.20) Sodium 139 L (140-148) mmol/L Potassium 3.4 L (3.6-5.2) mmol/L Chloride 102 (100-108) mmol/L Carbon Dioxide 27 (21-32) mmol/L Anion Gap 13.4 (5.0-14.0) mmol/L BUN 8 (7-18) mg/dL Creatinine 0.9 (0.8-1.3) mg/dL Est Cr Clr Drug Dosing 99.38 mL/min Estimated GFR (MDRD) > 60 (>60) Glucose 126 H (74-106) mg/dL Calcium 8.5 (8.5-10.1) mg/dL Phosphorus 2.0 L (2.5-4.9) mg/dL Magnesium 1.4 L (1.8-2.4) mg/dL Total Bilirubin 5.6 H D (0.2-1.0) mg/dL Direct Bilirubin 4.30 H (0.0-0.2) mg/dL AST 175 H (15-37) U/L ALT 222 H (12-78) U/L Alkaline Phosphatase 58 (46-116) U/L Total Protein 6.4 (6.4-8.2) g/dL Albumin 2.8 L (3.4-5.0) g/dL Globulin 3.6 H (2.3-3.5) g/dL Albumin/Globulin Ratio 0.8 L (1.2-2.2) 05/08/18 Range/Units 04:30 WBC (4.5-11.0) K/uL RBC (4.30-5.90) M/uL Hgb (12.0-15.0) g/dL Hct (40.0-54.0) % MCV (80-98) fL MCH (27-31) pg MCHC (32-36) % Plt Count (150-400) K/uL PT 12.7 H (9.5-12.0) sec INR 1.16 (0.80-1.20) Sodium (140-148) mmol/L Potassium (3.6-5.2) mmol/L Chloride (100-108) mmol/L Carbon Dioxide (21-32) mmol/L Anion Gap (5.0-14.0) mmol/L BUN (7-18) mg/dL Creatinine (0.8-1.3) mg/dL Est Cr Clr Drug Dosing mL/min Estimated GFR (MDRD) (>60) Glucose (74-106) mg/dL Calcium (8.5-10.1) mg/dL Phosphorus (2.5-4.9) mg/dL Magnesium (1.8-2.4) mg/dL Total Bilirubin (0.2-1.0) mg/dL Direct Bilirubin (0.0-0.2) mg/dL AST (15-37) U/L ALT (12-78) U/L Alkaline Phosphatase (46-116) U/L Total Protein (6.4-8.2) g/dL Albumin (3.4-5.0) g/dL Globulin (2.3-3.5) g/dL Albumin/Globulin Ratio (1.2-2.2) [place] Results Last 24 Hours: Microbiology 05/07/18 03:00 Aerobic Blood Culture - Preliminary Blood - Arm, Right Anaerobic Blood Culture - Preliminary NO GROWTH AFTER 1 DAY 05/07/18 03:05 Aerobic Blood Culture - Preliminary Blood - Arm, Left NO GROWTH AFTER 1 DAY Anaerobic Blood Culture - Preliminary NO GROWTH AFTER 1 DAY Med Orders - Current: Current Medications Acetaminophen (Tylenol) 650 mg PO Q4H PRN PRN Reason: Pain (mild 1-3) Last Admin: 05/08/18 03:19 Dose: 650 mg Amlodipine Besylate (Norvasc) 2.5 mg PO DAILY [facility] Last Admin: 05/07/18 09:57 Dose: 2.5 mg Artificial Tears (Natural Balance Tears) 0 ml EYEBOTH BID PRN PRN Reason: Other Clonazepam (Klonopin) 0.5 mg PO DAILY PRN PRN Reason: * Clonidine HCl (Catapres) 0.1 mg PO Tu@1200 [facility] Last Admin: 05/07/18 13:39 Dose: 0.1 mg Clonidine HCl (Catapres) 0.1 mg PO Q6H PRN PRN Reason: Adrenergic Systems Gabapentin (Neurontin) 400 mg PO Q8H [facility] Last Admin: 05/08/18 06:58 Dose: 400 mg Hydromorphone HCl (Dilaudid Shredded Filler Cutter Operator 15 Mg In Ns 30 Ml) 0 mg IV ASDIRECTED PRN; Protocol PRN 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 Dextrose/Lactated Ringer's (Dextrose 5%-Lactated Ringers) 1,000 mls @ 125 mls/ hr IV ASDIRECTED [facility] Last Admin: 05/08/18 01:49 Dose: 125 mls/hr Ampicillin Sodium/Sulbactam (Sodium 3 gm/ Sodium Chloride) 100 mls @ 200 mls/ hr IV Q6H [facility] Last Admin: 05/08/18 09:14 Dose: 200 mls/hr Magnesium Sulfate 2 gm/ Premix 50 mls @ 25 mls/hr IV Q6H JOSE Stop: 05/11/18 05:59 Potassium Phosphate 20 mmole/ (Sodium Chloride) 256.6667 mls @ 81.331 mls/hr IV Q3H JOSE Stop: 05/08/18 18:59 Ketotifen Fumarate (Ketotifen 0.025% Ophth Soln) 0 ml EYEBOTH BID PRN PRN Reason: Other Loratadine (Claritin) 10 mg PO DAILY [facility] Last Admin: 05/07/18 16:51 Dose: 10 mg Lorazepam (Ativan) 0 mg IV ASDIRECTED [facility]; Protocol Last Admin: 05/08/18 09:09 Dose: 1 mg Metoprolol Succinate (Toprol Xl) 150 mg PO DAILY [facility] Naloxone HCl (Narcan) 0.1 mg IV ASDIRECTED PRN PRN Reason: decreased respiratory rate Ondansetron HCl (Zofran) 4 mg IVPUSH Q4H PRN PRN Reason: Nausea Pantoprazole Sodium (Protonix Iv) 40 mg IV Q24H [facility] Last Admin: 05/08/18 09:16 Dose: 40 mg Thiamine HCl (Vitamin B-1) 100 mg PO DAILY [facility] Last Admin: 05/07/18 16:51 Dose: 100 mg Discontinued Medications Hydromorphone HCl (Dilaudid) 1 mg IVPUSH ONETIME ONE Stop: 05/06/18 23:44 Last Admin: 05/06/18 23:54 Dose: 1 mg Sodium Chloride (Normal Saline) 85 mls @ 4 mls/sec IV ASDIRECTED STA Stop: 05/07/18 01:33 Last Admin: 05/07/18 01:48 Dose: 4 mls/sec Aztreonam 1 gm/ Sodium (Chloride) 50 mls @ 100 mls/hr IV ONETIME ONE Stop: 05/07/18 03:24 Last Admin: 05/07/18 03:23 Dose: 100 mls/hr Clindamycin Phosphate 300 mg/ (Sodium Chloride) 52 mls @ 150 mls/hr IV ONETIME ONE Stop: 05/07/18 03:15 Last Admin: 05/07/18 03:04 Dose: 150 mls/hr Sodium Chloride (Normal Saline) 1,000 mls @ 300 mls/hr IV STAT JOSE Last Admin: 05/07/18 05:08 Dose: 300 mls/hr Multivitamins/Minerals 10 ml/Thiamine HCl 100 mg/ Folic Acid 1 mg/ Magnesium Sulfate 2 gm/ Sodium Chloride 1,015.2 mls @ 999 mls/hr IV ONETIME ONE Stop: 05/07/18 21:11 Last Admin: 05/07/18 23:26 Dose: Not Given Multivitamins/Minerals 10 ml/Thiamine HCl 100 mg/ Folic Acid 1 mg/ Magnesium Sulfate 2 gm/ Sodium Chloride 1,015.2 mls @ 999 mls/hr IV ONETIME ONE Stop: 05/08/18 09:00 Last Admin: 05/08/18 09:13 Dose: 999 mls/hr Iopamidol (Isovue-300 (61%)) 150 ml IV . DIRECTED STA Stop: 05/07/18 01:33 Last Admin: 05/07/18 01:48 Dose: 150 ml Lorazepam (Ativan) 1 mg IVPUSH ONETIME ONE Stop: 05/07/18 19:57 Last Admin: 05/07/18 20:10 Dose: 1 mg Metoprolol Succinate (Toprol Xl) 100 mg PO DAILY JOSE Last Admin: 05/07/18 09:58 Dose: 100 mg Metoprolol Succinate (Toprol Xl) 50 mg PO ONETIME ONE Stop: 05/07/18 15:31 Last Admin: 05/07/18 16:51 Dose: 50 mg - Exam Quality Assessment: DVT Prophylaxis General: Alert, Oriented, Cooperative, Mild Distress Lungs: Clear to Auscultation, Normal Respiratory Effort Cardiovascular: Regular Rate, Regular Rhythm GI/Abdominal Exam: Soft, No Organomegaly, No Distention, Tender. No: Guarding, Rigid, Rebound Extremities: Non-Tender, No Pedal Edema Skin: Warm, Dry, Intact Consult PN Assessment/Plan Problem List Initiated/Reviewed/Updated: Yes My Orders Last 24 Hours: My Active Orders 05/07/18 12:00 cloNIDine [Catapres] 0.1 mg PO Tu@1200 05/07/18 14:00 Gabapentin [Neurontin] 400 mg PO Q8H 05/07/18 14:01 Acetaminophen [Tylenol] 650 mg PO Q4H PRN 05/07/18 15:00 Ketotifen [Ketotifen 0.025% Ophth Soln] 0 ml EYEBOTH BID PRN 05/07/18 15:15 Thiamine [Vitamin B-1] 100 mg PO DAILY 05/07/18 15:30 Hypromellose [Natural Balance Tears] 0 ml EYEBOTH BID PRN Loratadine [Claritin] 10 mg PO DAILY 05/08/18 09:00 Metoprolol Succinate [Toprol XL] 150 mg PO DAILY 05/08/18 09:03 Cholangiopancreatography [MR] Urgent 05/09/18 08:00 Myocardial Perf Spect Multi [NM] Urgent Plan: ASSESSMENT AND RECOMMENDATIONS UPPER ABDOMINAL PAIN-most likely secondary to gallbladder disease, also possible would be gastric or duodenal ulcer or inflammation. -CCK stimulated HIDA scan today -Protonix 40 mg IV daily DECREASED EXERCISE TOLERANCE-recent history of shortness of breath with decreased exercise tolerance. He does have risk factors for coronary artery disease including hypertension, hypercholesterolemia, and a positive family history. Would plan to hold on any consideration of surgery until cardiac status has been further evaluated. -Exercise Cardiolite study tomorrow ELEVATED LIVER TESTS-review of outside records show no recent elevation in liver studies, current elevation in bilirubin and moderate elevation in transaminase levels possibly secondary to alcoholic hepatitis, versus obstruction. -Recheck labs in a.m. -MRCP today ALCOHOL ABUSE -Gabapentin 400 mg by mouth every 8 hours 4 days, then 200 mg by mouth every 8 hours 4 days -Monitor closely for any evidence of alcohol withdrawal HYPERTENSION -Continue outpatient antihypertensive therapy
[2018-05-08] MEDS: amLODIPine 5 MG Tab PO SCH (10:50)
[2018-05-08] MEDS: Potassium Phosphates 20 MMOLE in Sodium Chloride 0.9% 250 ML IV SCH ×3 (11:04→19:33)
--- NOTE | 2018-05-08 12:44 | NM ---
HEPATOBILIARY SCAN : Clinical History: Gallbladder disease Technique: Multiple scintographic images of the hepatobiliary system were obtained following the IV i njection of 5.31 mCi of technetium 99m Choletec. Findings: There is a normal pattern of hepatic uptake. Biliary activity is not seen throughout the en tire study to 2.5 hours Impression:Relatively normal hepatic uptake with nonvisualization of the biliary tree. This can be se en with the high-grade obstruction but there is no significant biliary dilatation on current CT. This may represent hepatocellular disease. Clinical and laboratory correlation is necessary.
--- NOTE | 2018-05-08 12:58 | CR ---
Orbits FB For MRI Bi CLINICAL HISTORY: Screening for metallic foreign body FINDINGS: No metallic foreign bodies identified in the orbits or periorbital regions IMPRESSION: Negative for foreign body
[2018-05-08] MEDS: Thiamine 100 MG Tab PO SCH (13:45)
[2018-05-08] MEDS: Loratadine 10 MG Tab PO SCH (13:45)
--- NOTE | 2018-05-08 14:44 | MR ---
Cholangiopancreatography CLINICAL HISTORY: Elevated bilirubin COMPARISON: CT abdomen TECHNIQUE: Multiple images of the biliary system were obtained. All images were obtained on a 1.5 Jaimie la Siemens unit. FINDINGS: The liver has a normal contour. There is no intrahepatic ductal dilatation. The common hepa tic duct and common bile duct have a relatively normal diameter. There are 2 measuring 3 x 5 mm and 3 x 10 mm. No pancreatic ductal dilatation is identified. The gallbladder is mildly distended. There a re 2 small filling defects in the dependent portion that be small stones Small filling defects in the distal common bile duct IMPRESSION: There are 2 stones in the distal common bile duct with no significant ductal dilatation Mildly distended gallbladder with 2 small gallstones
[2018-05-09] MEDS: Magnesium Sulfate/Water 2 GM in Premix Bag 1 BAG IV SCH ×2 (03:46→09:49)
[2018-05-09] MEDS: Ampicillin/Sulbactam Na 3 GM in Sodium Chloride 0.9% 100 ML IV SCH ×2 (03:47→09:53)
[2018-05-09] MEDS: Acetaminophen 325 MG Tab PO PRN (03:55)
[2018-05-09] MEDS: Gabapentin 400 MG Cap PO SCH (05:38)
[2018-05-09] MEDS: Dextrose 5%-Lactated Ringers 1,000 ML IV SCH (06:46)
--- NOTE | 2018-05-09 08:12 | PN ---
DATE OF SERVICE: 05/09/2018 SUBJECTIVE: Jesica is n.p.o. for a stress test today. He had an MRCP yesterday and results showed two stones in the distal common bile duct with no significant ductal dilation. Labs today, total bilirubin is down from 5.6 to 4. Oral intake was 1000. He did have a bowel movement. Urine output 3750. REVIEW OF SYSTEMS: HEENT: Negative. NECK: Negative. CHEST: Remains to have some mid-upper abdominal pain with a little bit of radiation up into the chest as well as to the right upper quadrant. No chest pain, fast or irregular heartbeats. : Negative. MUSCULOSKELETAL: Extremities reveals some joint stiffness and back pain, states lying in bed. LUNGS: No shortness of breath. NEURO: Denies any headache, dizziness, or loss of coordination. PSYCHIATRIC: Negative. Remainder of review of systems negative for any pertinent positives and negatives. OBJECTIVE: GENERAL: Jesica Amezquita is a pleasant 52-year-old male, sitting on the edge of the bed. He is alert and orientated, in no acute distress. VITAL SIGNS: TPR 97.3, 97, 18, and blood pressure 152/91. HEENT: Negative. NECK: Supple. HEART: Regular rate and rhythm. LUNGS: Clear. ABDOMEN: Slightly tender in the midepigastric and right upper quadrant. EXTREMITIES: No edema. Full range of motion. SKIN: Without rash. NEURO: Intact. PSYCHIATRIC: Mood and affect appropriate. ASSESSMENT: 1. Two bile duct stones in distal common bile duct. 2. Decreased exercise tolerance. 3. Elevated liver function tests. 4. Alcohol abuse. 5. Hypertension. PLAN: 1. Stress test today. 2. Plan would be to have an ERCP in the near future in regard to stones in the bile duct. 3. We will evaluate p.r.n. or in a.m. Patricia Jean Baptiste PA-C /[id number]
[2018-05-09] MEDS: Loratadine 10 MG Tab PO SCH (08:50)
[2018-05-09] MEDS: Thiamine 100 MG Tab PO SCH (08:51)
[2018-05-09] MEDS: Pantoprazole 40 MG Vial IV SCH (09:47)
--- NOTE | 2018-05-09 12:21 | NM ---
Myocardial Perf Spect Multi INDICATION: Dyspnea with exertion COMPARISON: None. TECHNIQUE: Nuclear medicine myocardial perfusion scan was performed after IV administration of 12.3 millicuries uptake technetium 99m Myoview at rest and 34.2 millicuries of technetium 99m at stress ( Lexiscan). FINDINGS: Myocardial perfusion: There is a small essentially fixed defect in the anterior septal wall. It is slightly smaller on the rest images but this is likely technical. There is a small fixed defect in th e inferior lateral apex. Wall motion: Normal wall motion. LVEF stress: 55 % LVEF rest: 52 % Other findings: None. IMPRESSION: There is a essentially fixed defect in the anterior septal wall and a smaller fixed de fect in the inferior lateral apex. Some of this may be due to artifact the. The previous infarcts in these regions are not excluded No strong evidence to suggest reversible ischemia
--- NOTE | 2018-05-09 13:56 | PCM.DCSUM1 ---
Discharge Summary - Hospital Course Brief History: Mr. Amezquita is a 52-year-old gentleman who was admitted through the emergency department with abdominal pain, nausea, vomiting, and elevated liver tests. - Discharge Data Discharge Date: 05/09/18 Discharge Disposition: DC/Tfer to Acute Hospital 02 Condition: Fair - Discharge Diagnosis/Problem(s) (1) Common bile duct stone SNOMED Code(s): 513559987 ICD Code: K80.50 - CALCULUS OF BILE DUCT W/O CHOLANGITIS OR CHOLECYST W/O OBST Status: Acute Current Visit: Yes (2) Decreased exercise tolerance SNOMED Code(s): 780805095 ICD Code: R68.89 - OTHER GENERAL SYMPTOMS AND SIGNS Status: Acute Current Visit: Yes (3) Alcohol abuse SNOMED Code(s): 48145767 ICD Code: F10.10 - ALCOHOL ABUSE, UNCOMPLICATED Status: Acute Current Visit: Yes (4) Elevated liver enzymes SNOMED Code(s): 950443088 ICD Code: R74.8 - ABNORMAL LEVELS OF OTHER SERUM ENZYMES Status: Acute Current Visit: Yes - Patient Summary/Data Consults: Consultations 05/07/18 08:16 Consult to Physician [CONS] Routine Consulting Provider: Tunde Cool Call Completed to Consulting Physician: No Reason for Consult: ? diagnosis Person Notified: tunde cool Date Notified: 05/07/18 Time Notified: 09:00 Special Instructions: will notify in rounds Hospital Course: Mr. Amezquita is a 52-year-old gentleman who was admitted through the emergency department with abdominal pain, nausea, vomiting, and elevated liver studies. He reports that recently he has noted increased shortness of breath with exertion and decrease in his exercise tolerance. He been seen and evaluated in [place] at the [facility] clinic, exercise Cardiolite study had been recommended but has not yet been obtained. Yesterday he reported onset of lower chest pain in the early evening. Pain became more intense and more centered in the upper abdomen. It was associated with nausea but no vomiting. Pain was initially described as a burning sensation that and became a more intense ache with cramping quality. Pain is since resolved and not recurred since admission. He still has his gallbladder, ultrasound and CT showed evidence of distention but no obvious gallbladder wall thickening. He also reports a history of ongoing alcohol use at least 8 cans of beer per day and previous history of alcohol withdrawal. On admission he was given IV fluids for hydration as well as pain medication and medication as needed for nausea. He was seen and evaluated by Dr. Rust for surgical opinion. CCK stimulated HIDA scan was performed and showed no uptake into the gallbladder or ducts of the liver. MRCP was obtained and showed evidence of 2 stones in the distal common bile duct. Hepatocellular enzymes were moderately elevated at the time of admission and improved modestly by the time of transfer. Bilirubin was elevated on admission and increased greater than 5 on the day prior to admission, on the day of transfer was 4.0. He does have a long-standing history of abuse and dependence, on admission was started on gabapentin 400 mg every 8 hours with the plan to continue that for 4 days and then decrease to 200 mg every 8 hours for an additional 4 days. He was monitored for alcohol withdrawal and only had a few episodes of tremulousness during the hospital stay. Blood cultures were obtained at the time of admission and he was started on IV antibiotic therapy with Unasyn. One of 4 bottles did return positive for Escherichia coli which was found to be pansensitive. Because of his history of decreased exercise tolerance exercise Cardiolite study was obtained on the day of transfer, he was able to exercise for only 5 minutes on the Deandre protocol but had no symptoms of chest pain or pressure or significant ST segment changes. Cardiolite portion the study showed 2 small fixed defects but no evidence of ischemia. Because of the common duct stones he will be transferred to [facility] in [place] [facility] for further subspecialty evaluation and ERCP. He will be transferred via [facility]. - Patient Instructions Diet: GI Soft/Low Residue/Low Fiber Activity: As Tolerated Other/Special Instructions: Patient will be transferred via [facility] to [facility] in [place] [facility] - Discharge Plan *PRESCRIPTION DRUG MONITORING PROGRAM REVIEWED*: Not Applicable *COPY OF PRESCRIPTION DRUG MONITORING REPORT IN PATIENT ELIE: Not Applicable Home Medications: Home Meds Metoprolol Succinate [Toprol XL 100mg] 150 mg PO DAILY 05/06/18 [History] amLODIPine [Norvasc] 2.5 mg PO DAILY 05/06/18 [History] Fexofenadine HCl [Aller-Ease] 180 mg PO DAILY 05/07/18 [History] Hydrocortisone [Hydrocortisone 1% Crm] 1 film TOP BID PRN 05/07/18 [History] Olopatadine HCl 1 drop EYEBOTH BID PRN 05/07/18 [History] Propylene Glycol/Peg 400 [Systane 0.3-0.4% Eye Drops] 1 drop EYEBOTH BID PRN [History] Thiamine [Vitamin B-1] 100 mg PO DAILY 05/07/18 [History] cloNIDine [Catapres] 0.1 mg PO WEEKLY 05/07/18 [History] Ampicillin/Sulbactam Na [Unasyn] 3 gm IV Q6H vial 05/09/18 [Rx] - Discharge Summary/Plan Comment DC Time >30 min.: No - Patient Data Vitals - Most Recent: Last Vital Signs Temp 100 F 05/09/18 11:41 Pulse 96 05/09/18 11:41 Resp 16 05/09/18 11:41 BP 160/93 H 05/09/18 11:41 Pulse Ox 95 05/09/18 13:23 Weight - Most Recent: 272 lb 3.205 oz I&O - Last 24 hours: Intake & Output 05/08/18 05/09/18 05/09/18 22:59 06:59 14:59 Intake Total 4250 1778 Output Total 2475 Balance 4250 -697 Lab Results - Last 24 hrs: Laboratory Results - last 24 hr 05/09/18 05/09/18 Range/Units 04:00 04:00 WBC 9.5 (4.5-11.0) K/uL RBC 4.57 (4.30-5.90) M/uL Hgb 14.8 (12.0-15.0) g/dL Hct 42.3 (40.0-54.0) % MCV 93 (80-98) fL MCH 32 H (27-31) pg MCHC 35 (32-36) % Plt Count 110 L (150-400) K/uL Sodium 137 L (140-148) mmol/L Potassium 3.9 (3.6-5.2) mmol/L Chloride 103 (100-108) mmol/L Carbon Dioxide 25 (21-32) mmol/L Anion Gap 12.9 (5.0-14.0) mmol/L BUN 4 L (7-18) mg/dL Creatinine 0.9 (0.8-1.3) mg/dL Est Cr Clr Drug Dosing 99.38 mL/min Estimated GFR (MDRD) > 60 (>60) Glucose 142 H (74-106) mg/dL Calcium 8.4 L (8.5-10.1) mg/dL Phosphorus 2.8 (2.5-4.9) mg/dL Total Bilirubin 4.0 H (0.2-1.0) mg/dL AST 121 H (15-37) U/L ALT 185 H (12-78) U/L Alkaline Phosphatase 74 (46-116) U/L Total Protein 6.7 (6.4-8.2) g/dL Albumin 2.6 L (3.4-5.0) g/dL Globulin 4.1 H (2.3-3.5) g/dL Albumin/Globulin Ratio 0.6 L (1.2-2.2) Amylase 33 (25-115) U/L Lipase 141 (73-393) U/L VENESSA Results - Last 24 hrs: Microbiology 05/07/18 03:00 Aerobic Blood Culture - Final Blood - Arm, Right Escherichia Coli Anaerobic Blood Culture - Preliminary NO GROWTH AFTER 2 DAYS 05/07/18 03:05 Aerobic Blood Culture - Preliminary Blood - Arm, Left NO GROWTH AFTER 2 DAYS Anaerobic Blood Culture - Preliminary NO GROWTH AFTER 2 DAYS Med Orders - Current: Current Medications Acetaminophen (Tylenol) 650 mg PO Q4H PRN PRN Reason: Pain (mild 1-3) Last Admin: 05/09/18 03:55 Dose: 650 mg Amlodipine Besylate (Norvasc) 2.5 mg PO DAILY [facility] Last Admin: 05/08/18 10:50 Dose: Not Given Artificial Tears (Natural Balance Tears) 0 ml EYEBOTH BID PRN PRN Reason: Other Clonazepam (Klonopin) 0.5 mg PO DAILY PRN PRN Reason: * Clonidine HCl (Catapres) 0.1 mg PO Tu@1200 [facility] Last Admin: 05/07/18 13:39 Dose: 0.1 mg Clonidine HCl (Catapres) 0.1 mg PO Q6H PRN PRN Reason: Adrenergic Systems Gabapentin (Neurontin) 400 mg PO Q8H [facility] Last Admin: 05/09/18 05:38 Dose: 400 mg Hydromorphone HCl (Dilaudid Cone Examiner 15 Mg In Ns 30 Ml) 0 mg IV ASDIRECTED PRN; Protocol PRN Reason: [employer] PAIN CONTROL Dextrose/Lactated Ringer's (Dextrose 5%-Lactated Ringers) 1,000 mls @ 125 mls/ hr IV ASDIRECTED [facility] Last Admin: 05/09/18 06:46 Dose: 125 mls/hr Ampicillin Sodium/Sulbactam (Sodium 3 gm/ Sodium Chloride) 100 mls @ 200 mls/ hr IV Q6H [facility] Last Admin: 05/09/18 09:53 Dose: 200 mls/hr Magnesium Sulfate 2 gm/ Premix 50 mls @ 25 mls/hr IV Q6H [facility] Stop: 05/11/18 05:59 Last Admin: 05/09/18 09:49 Dose: 25 mls/hr Ketotifen Fumarate (Ketotifen 0.025% Ophth Soln) 0 ml EYEBOTH BID PRN PRN Reason: Other Loratadine (Claritin) 10 mg PO DAILY [facility] Last Admin: 05/09/18 08:50 Dose: Not Given Lorazepam (Ativan) 0 mg IV ASDIRECTED [facility]; Protocol Last Admin: 05/08/18 11:03 Dose: 2 mg Metoprolol Succinate (Toprol Xl) 150 mg PO DAILY [facility] Last Admin: 05/08/18 10:50 Dose: Not Given Naloxone HCl (Narcan) 0.1 mg IV ASDIRECTED PRN PRN Reason: decreased respiratory rate Ondansetron HCl (Zofran) 4 mg IVPUSH Q4H PRN PRN Reason: Nausea Pantoprazole Sodium (Protonix Iv) 40 mg IV Q24H [facility] Last Admin: 05/09/18 09:47 Dose: 40 mg Thiamine HCl (Vitamin B-1) 100 mg PO DAILY [facility] Last Admin: 05/09/18 08:51 Dose: Not Given Discontinued Medications Hydromorphone HCl (Dilaudid) 1 mg IVPUSH ONETIME ONE Stop: 05/06/18 23:44 Last Admin: 05/06/18 23:54 Dose: 1 mg Sodium Chloride (Normal Saline) 85 mls @ 4 mls/sec IV ASDIRECTED [facility] Stop: 05/07/18 01:33 Last Admin: 05/07/18 01:48 Dose: 4 mls/sec Aztreonam 1 gm/ Sodium (Chloride) 50 mls @ 100 mls/hr IV ONETIME ONE Stop: 05/07/18 03:24 Last Admin: 05/07/18 03:23 Dose: 100 mls/hr Clindamycin Phosphate 300 mg/ (Sodium Chloride) 52 mls @ 150 mls/hr IV ONETIME ONE Stop: 05/07/18 03:15 Last Admin: 05/07/18 03:04 Dose: 150 mls/hr Sodium Chloride (Normal Saline) 1,000 mls @ 300 mls/hr IV STAT [facility] Last Admin: 05/07/18 05:08 Dose: 300 mls/hr Multivitamins/Minerals 10 ml/Thiamine HCl 100 mg/ Folic Acid 1 mg/ Magnesium Sulfate 2 gm/ Sodium Chloride 1,015.2 mls @ 999 mls/hr IV ONETIME ONE Stop: 05/07/18 21:11 Last Admin: 05/07/18 23:26 Dose: Not Given Multivitamins/Minerals 10 ml/Thiamine HCl 100 mg/ Folic Acid 1 mg/ Magnesium Sulfate 2 gm/ Sodium Chloride 1,015.2 mls @ 999 mls/hr IV ONETIME ONE Stop: 05/08/18 09:00 Last Admin: 05/08/18 09:13 Dose: 999 mls/hr Potassium Phosphate 20 mmole/ (Sodium Chloride) 256.6667 mls @ 81.331 mls/hr IV Q3H [facility] Stop: 05/08/18 18:59 Last Admin: 05/08/18 19:33 Dose: 81.331 mls/hr Iopamidol (Isovue-300 (61%)) 150 ml IV . DIRECTED ST[facility] Stop: 05/07/18 01:33 Last Admin: 05/07/18 01:48 Dose: 150 ml Lorazepam (Ativan) 1 mg IVPUSH ONETIME ONE Stop: 05/07/18 19:57 Last Admin: 05/07/18 20:10 Dose: 1 mg Metoprolol Succinate (Toprol Xl) 100 mg PO DAILY [facility] Last Admin: 05/07/18 09:58 Dose: 100 mg Metoprolol Succinate (Toprol Xl) 50 mg PO ONETIME ONE Stop: 05/07/18 15:31 Last Admin: 05/07/18 16:51 Dose: 50 mg - Exam Quality Assessment: Reports: DVT Prophylaxis General: Reports: Alert, Oriented, Cooperative, Mild Distress Lungs: Reports: Clear to Auscultation, Normal Respiratory Effort Cardiovascular: Reports: Regular Rate, Regular Rhythm, No Murmurs GI/Abdominal Exam: Soft, Non-Tender, No Organomegaly, No Distention Extremities: Non-Tender, No Pedal Edema Skin: Reports: Warm, Dry, Intact
--- NOTE | 2018-05-09 14:51 | STRESS ---
DATE OF SERVICE: 05/09/2018 PROCEDURES PERFORMED: Exercise Cardiolite study. INDICATIONS: Mr. Amezquita was exercised for 5 minutes on the Deandre protocol for the exercise portion of the exercise Cardiolite study. He completed 2 minutes of stage II at 2.5 miles/hour and 12 degrees elevation. Test was stopped when he reached greater than 85% of predicted maximal heart rate. He experienced symptoms of shortness of breath, but denied any chest pain or pressure. He was able to reach a rate pressure product of 24,600 and a workload of 7.0 METS. Resting heart rate was 87 and went to 154 with exercise. This was equal to 92% of predicted maximal heart rate. Resting blood pressure was 150/95 and went to 170/80 with exercise. Resting ECG: Sinus rhythm, rate of 64, normal axis and intervals. Otherwise, normal appearing EKG. No significant changes were noted on the post hyperventilation or standing ECGs. There were no significant ST-segment changes or T-wave abnormalities seen with exercise or in the post exercise period. He had symptoms as reported above. No significant dysrhythmias were noted during the monitoring period other than rare premature ventricular complexes. IMPRESSION: Negative treadmill exercise portion of exercise Cardiolite study, although at relatively low level of exercise, he was able to reach greater than 85% of predicted maximal heart rate with this level of exercise. Dash James MD /[id number]
== END 2018-05-09 14:25 ==
LOC: JP.ED 23:14 → JP.MS 05-07 06:58
PROVIDERS: ADMIT Surgery; ATTEND Surgery
DX: K80.50 Calculus of bile duct without cholangitis or cholecystitis without obstruction (principal); F10.239 Alcohol dependence with withdrawal, unspecified; R74.8 Abnormal levels of other serum enzymes; R68.89 Other general symptoms and signs; E78.00 Pure hypercholesterolemia, unspecified; I10 Essential (primary) hypertension; K21.9 Gastro-esophageal reflux disease without esophagitis; M19.90 Unspecified osteoarthritis, unspecified site; Z87.891 Personal history of nicotine dependence; H91.90 Unspecified hearing loss, unspecified ear; Z88.6 Allergy status to analgesic agent; H91.92 Unspecified hearing loss, left ear; Z82.49 Family history of ischemic heart disease and other diseases of the circulatory system; Y90.6 Blood alcohol level of 120-199 mg/100 ml; R10.10 Upper abdominal pain, unspecified; A49.8 Other bacterial infections of unspecified site
CPT/HCPCS: 36415; 70030-26; 70030-50; 74022; 74022-26; 74177; 74181; 74181-26; 76705; 76705-26; 78227; 78227-26; 78452; 78452-26; 80053; 80305-QW; 81001; 82150; 82248; 83690; 83735; 84100; 85025; 85027; 85610; 86140; 87040; 87077; 87186; 93017; 94762; 96365; 96367; 96375; 99285-25; A9270-GY; A9500; C9113; G0480; J0295; J1170; J2060; J3411; J3475; J3490; J7030; J7042; J7050; S0073; S0077

== ENCOUNTER 2018-12-04 23:11 | Emergency (ER) | payer MEDICAID ==
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
== END 2018-12-05 01:19 ==
LOC: JP.ED 23:11
DX: F10.929 Alcohol use, unspecified with intoxication, unspecified (principal); Z79.899 Other long term (current) drug therapy; Z88.6 Allergy status to analgesic agent; Y90.8 Blood alcohol level of 240 mg/100 ml or more; Z02.89 Encounter for other administrative examinations
CPT/HCPCS: 36415; 80053; 85025; 99285; G0480

== ENCOUNTER 2019-09-27 20:47 | Emergency (ER) | payer MEDICAID, OTHER ==
[2019-09-27] MEDS ORDERED: Ibuprofen 400 MG Tab PO ONE (21:29)
--- NOTE | 2019-09-27 21:35 | EDM.PDOC ---
ED HPI GENERAL MEDICAL PROBLEM - General Chief Complaint: General Stated Complaint: EVAL Time Seen by Provider: 09/27/19 21:30 Source of Information: Reports: Patient History Limitations: Reports: No Limitations - History of Present Illness INITIAL COMMENTS - FREE TEXT/NARRATIVE: pt was arrested tonight and he has been drinking heavily all day. He had his last drink about 7 pm. He had about 7 swallows of vodka. He blew a etohlevel of 3.1. Onset: Today Duration: Hour(s):, Other (pt drinks alot every day. ) Location: Reports: Other (pt is having some knee pain. ) Associated Symptoms: Reports: No Other Symptoms - Related Data Allergies Allergy/AdvReac Type Severity Reaction Status Date / Time ibuprofen Allergy Edema Verified 09/27/19 21:02 Home Meds: Home Meds Metoprolol Succinate [Toprol XL 100mg] 150 mg PO DAILY 05/06/18 [History] amLODIPine [Norvasc] 2.5 mg PO DAILY 05/06/18 [History] Fexofenadine HCl [Aller-Ease] 180 mg PO DAILY 05/07/18 [History] Hydrocortisone [Hydrocortisone 1% Crm] 1 film TOP BID PRN 05/07/18 [History] Olopatadine HCl 1 drop EYEBOTH BID PRN 05/07/18 [History] Propylene Glycol/Peg 400 [Systane 0.3-0.4% Eye Drops] 1 drop EYEBOTH BID PRN [History] Thiamine [Vitamin B-1] 100 mg PO DAILY 05/07/18 [History] cloNIDine [Catapres] 0.1 mg PO WEEKLY 05/07/18 [History] Ampicillin/Sulbactam Na [Unasyn] 3 gm IV Q6H vial 05/09/18 [Rx] Past Medical History HEENT History: Reports: Allergic Rhinitis, Glaucoma, Hard of Hearing, Impaired Vision Other HEENT History: deaf left ear, constant nasal drip Cardiovascular History: Reports: High Cholesterol, Hypertension Other Cardiovascular History: abnormal EKG wanted him to do stress test on Sunday last week Respiratory History: Reports: Other (See Below) Other Respiratory History: easily fatigues and SOB with exertion Gastrointestinal History: Reports: GERD Musculoskeletal History: Reports: Arthritis, Fracture, Other (See Below) Other Musculoskeletal History: fx tibia and fibula with pinning and plate Neurological History: Reports: Concussion, Seizure, Other (See Below) Other Neuro History: etoh withdraw seizures Psychiatric History: Reports: Addiction Endocrine/Metabolic History: Reports: Obesity/BMI 30+ - Infectious Disease History Infectious Disease History: Reports: Other (See Below) Other Infectious Disease History: unknown - Past Surgical History GI Surgical History: Reports: Appendectomy, Cholecystectomy Other Musculoskeletal Surgeries/Procedures:: right shoulder pain, left hip pain Social & Family History - Family History Family Medical History: Noncontributory Cardiac: Reports: Heart Failure GI: Reports: Cholelithiasis Endocrine/Metabolic: Reports: Diabetes, type II - Tobacco Use Smoking Status *Q: Never Smoker - Caffeine Use Caffeine Use: Reports: Other Other Caffeine Use: unknown - Alcohol Use Date of Last Drink: 09/27/19 - Recreational Drug Use Recreational Drug Use: No ED ROS GENERAL - Review of Systems Review Of Systems: See Below Constitutional: Reports: Other (pt is intoxicated. ) HEENT: Reports: No Symptoms Respiratory: Reports: No Symptoms Cardiovascular: Reports: No Symptoms Endocrine: Reports: No Symptoms GI/Abdominal: Reports: No Symptoms : Reports: No Symptoms Musculoskeletal: Reports: Other (pt is having pain in both knees. ) Neurological: Reports: Other (pt is intoxicated and he is able to walk ok speak ok and his vitals are good. ) ED EXAM, GENERAL - Physical Exam Exam: See Below Free Text/Narrative:: pt is able to give a good history. His vitals are good. He is alert. Exam Limited By: No Limitations General Appearance: Alert, No Apparent Distress, Other (pupils are equal and reactive. ) Ears: Normal TMs Nose: Normal Inspection Throat/Mouth: Normal Inspection Head: Atraumatic Neck: Normal Inspection Respiratory/Chest: No Respiratory Distress Cardiovascular: Regular Rate, Rhythm, Tachycardia GI/Abdominal: Soft, Non-Tender (Male) Exam: Deferred Rectal (Males) Exam: Deferred Course - Vital Signs Last Recorded V/S: Last Vital Signs Temp 35.4 C 09/27/19 21:09 Pulse 136 H 09/27/19 21:09 Resp 16 09/27/19 21:09 BP 144/95 H 09/27/19 21:09 Pulse Ox 94 L 09/27/19 21:09 - Orders/Labs/Meds Orders: Active Orders 24 hr Category Date Time Status GLUCOSE POC LAB TO COLLECT [POC] Stat Lab 12/14/19 21:28 Ordered Ibuprofen [Motrin] Med 09/27/19 21:29 Once 400 mg PO ONETIME ONE - Re-Assessments/Exams Free Text/Narrative Re-Assessment/Exam: 09/27/19 21:35 Pt was given motrin 400mg. Departure - Departure Time of Disposition: 21:35 Disposition: Home, Self-Care 01 Condition: Fair Clinical Impression: Acute alcohol intoxication - Discharge Information Referrals: PCP,None [Primary Care Provider] - Care Plan Goals: [facility] [place] [facility] Sepsis Event Note - Evaluation Sepsis Screening Result: No Definite Risk - Focused Exam Vital Signs: Vital Signs Temp Pulse Resp BP Pulse Ox 09/27/19 21:09 35.4 C 136 H 16 144/95 H 94 L 09/27/19 20:56 35.4 C 136 H 16 144/95 H 94 L Date Exam was Performed: 09/27/19 Time Exam was Performed: 21:30 - My Orders Last 24 Hours: My Active Orders 09/27/19 21:28 GLUCOSE POC LAB TO COLLECT [POC] Stat 09/27/19 21:29 Ibuprofen [Motrin] 400 mg PO ONETIME ONE - Assessment/Plan Last 24 Hours: My Active Orders 09/27/19 21:28 GLUCOSE POC LAB TO COLLECT [POC] Stat 09/27/19 21:29 Ibuprofen [Motrin] 400 mg PO ONETIME ONE
== END 2019-09-27 21:49 | disposition home or self-care (01) ==
LOC: JP.ED 20:47
DX: F10.129 Alcohol abuse with intoxication, unspecified (principal); H91.92 Unspecified hearing loss, left ear; I10 Essential (primary) hypertension; E66.9 Obesity, unspecified; Z68.34 Body mass index [BMI] 34.0-34.9, adult; Z88.6 Allergy status to analgesic agent; Z79.899 Other long term (current) drug therapy
CPT/HCPCS: 82962; 99283; A9270-GY

== ENCOUNTER 2021-06-23 15:14 | Emergency (ER) | payer MEDICAID ==
[2021-06-23] MEDS ORDERED: Thiamine 100 MG Tab PO ONE (16:31)
--- NOTE | 2021-06-23 16:42 | EDM.PDOC ---
ED HPI GENERAL MEDICAL PROBLEM - General Chief Complaint: Abdominal Pain Stated Complaint: STOMACH PAIN AND BRUISING Time Seen by Provider: 06/23/21 16:20 Source of Information: Reports: Patient, Old Records, RN History Limitations: Reports: No Limitations - History of Present Illness INITIAL COMMENTS - FREE TEXT/NARRATIVE: 55 yo NA male is here with intoxication and a concern about bruising all over his body. He is a chronic drinker and alleges he had no idea he had liver dz. He has been having the large bruise on is abdomen for about 9-11 d but has not been to his doctor for this. He has been drinking today and comes in via his daughter's car. He has no interest in detox today. He thinks he got the large bruise on his abd from falling in the bathroom while drunk. Onset: Unknown/Unsure Duration: Day(s): (11 days), Constant Location: Reports: Abdomen Quality: Reports: Dull Severity: Mild Improves with: Reports: None Worsens with: Reports: None Context: Reports: Trauma Associated Symptoms: Reports: No Other Symptoms Treatments NURSE HEALTHCARE MANAGER: Reports: Other (see below) (none) Abdominal Pain Score (Numeric/FACES): 8 - Related Data Allergies Allergy/AdvReac Type Severity Reaction Status Date / Time ibuprofen Allergy Edema Verified 06/23/21 15:52 Home Meds: Home Meds Metoprolol Succinate [Toprol XL 100mg] 150 mg PO DAILY 05/06/18 [History] amLODIPine [Norvasc] 2.5 mg PO DAILY 05/06/18 [History] Fexofenadine HCl [Aller-Ease] 180 mg PO DAILY 05/07/18 [History] Hydrocortisone [Hydrocortisone 1% Crm] 1 film TOP BID PRN 05/07/18 [History] Olopatadine HCl 1 drop EYEBOTH BID PRN 05/07/18 [History] Propylene Glycol/Peg 400 [Systane 0.3-0.4% Eye Drops] 1 drop EYEBOTH BID PRN 05/07/18 [History] Thiamine [Vitamin B-1] 100 mg PO DAILY 05/07/18 [History] cloNIDine [Catapres] 0.1 mg PO WEEKLY 05/07/18 [History] Past Medical History HEENT History: Reports: Allergic Rhinitis, Glaucoma, Hard of Hearing, Impaired Vision Other HEENT History: deaf left ear, constant nasal drip Cardiovascular History: Reports: High Cholesterol, Hypertension Other Cardiovascular History: abnormal EKG wanted him to do stress test on Sunday last week Respiratory History: Reports: Other (See Below) Other Respiratory History: easily fatigues and SOB with exertion Gastrointestinal History: Reports: GERD Musculoskeletal History: Reports: Arthritis, Fracture, Other (See Below) Other Musculoskeletal History: fx tibia and fibula with pinning and plate Neurological History: Reports: Concussion, Seizure, Other (See Below) Other Neuro History: etoh withdraw seizures Psychiatric History: Reports: Addiction Endocrine/Metabolic History: Reports: Obesity/BMI 30+ - Infectious Disease History Infectious Disease History: Reports: Other (See Below) Other Infectious Disease History: unknown - Past Surgical History Cardiovascular Surgical History: Reports: None GI Surgical History: Reports: Appendectomy, Cholecystectomy Other Musculoskeletal Surgeries/Procedures:: right shoulder pain, left hip pain Social & Family History - Family History Family Medical History: No Pertinent Family History Cardiac: Reports: Heart Failure GI: Reports: Cholelithiasis Endocrine/Metabolic: Reports: Diabetes, type II - Tobacco Use Tobacco Use Status *Q: Former Tobacco User Used Tobacco, but Quit: Yes Month/Year Tobacco Last Used: 18 years ago - Caffeine Use Caffeine Use: Reports: None Other Caffeine Use: unknown - Alcohol Use Date of Last Drink: 06/23/21 - Recreational Drug Use Recreational Drug Use: No ED ROS GENERAL - Review of Systems Review Of Systems: See Below Constitutional: Reports: No Symptoms HEENT: Reports: Nosebleed (small amts with blowing) Respiratory: Reports: No Symptoms Cardiovascular: Reports: No Symptoms Endocrine: Reports: No Symptoms GI/Abdominal: Reports: Abdominal Pain. Denies: Nausea, Vomiting : Reports: No Symptoms Musculoskeletal: Reports: No Symptoms Skin: Reports: Bruising Neurological: Reports: No Symptoms ED EXAM, GI/ABD - Physical Exam Exam: See Below Exam Limited By: No Limitations General Appearance: Alert, WD/WN, No Apparent Distress Eyes: Bilateral: Normal Appearance Ears: Normal External Exam, Normal Canal, Normal TMs, Hearing Loss. No: Hearing Grossly Normal Nose: Normal Inspection, Other (small amt of bloody drainage) Throat/Mouth: Normal Inspection, Normal Lips, Normal Oropharynx, Normal Voice, No Airway Compromise Head: Atraumatic, Normocephalic Neck: Normal Inspection Respiratory/Chest: No Respiratory Distress, Lungs Clear, Normal Breath Sounds, No Accessory Muscle Use Cardiovascular: Regular Rate, Rhythm, No Edema, Tachycardia GI/Abdominal Exam: Normal Bowel Sounds, Soft, Non-Tender, No Distention Back Exam: Normal Inspection Extremities: Normal Inspection Neurological: Alert, Oriented, CN II-XII Intact, Normal Cognition, No Motor/Sensory Deficits, Other (alcohol intox) Psychiatric: Normal Affect, Normal Mood Skin Exam: Warm, Dry, Intact, No Rash, Ecchymosis (diffuse brusing with a single large bruise on his abdomen). No: Normal Color, Wound/Incision Course - Vital Signs Last Recorded V/S: Last Vital Signs Temp 36.1 C 06/23/21 15:59 Pulse 81 06/23/21 15:59 Resp 16 06/23/21 15:59 BP 141/82 H 06/23/21 15:59 Pulse Ox 97 06/23/21 15:59 - Orders/Labs/Meds Meds: Medications Discontinued Medications Generic Name Dose Route Start Last Admin Trade Name Freq PRN Reason Stop Dose Admin Thiamine HCl 100 mg 06/23/21 16:31 Thiamine 100 Mg Tab PO 06/23/21 16:32 ONETIME ONE Departure - Departure Time of Disposition: 16:42 Disposition: Home, Self-Care 01 Condition: Poor Clinical Impression: End-stage liver disease, Bruising, Alcohol abuse Alcohol intoxication Qualifiers: Complication of substance-induced condition: with unspecified complication Qualified Code(s): F10.929 - Alcohol use, unspecified with intoxication, unspecified - Discharge Information *PRESCRIPTION DRUG MONITORING PROGRAM REVIEWED*: Not Applicable *COPY OF PRESCRIPTION DRUG MONITORING REPORT IN PATIENT ELIE: Not Applicable Referrals: PCP,None [Primary Care Provider] - Additional Instructions: You need to get help with your alcohol use or you will not be alive for much longer. No driving due to your current intoxication. Share your lab results with your doctor. Sepsis Event Note (ED) - Evaluation Sepsis Screening Result: No Definite Risk - Focused Exam Vital Signs: Vital Signs Temp Pulse Resp BP Pulse Ox 06/23/21 15:59 36.1 C 81 16 141/82 H 97 06/23/21 15:49 36.1 C 81 16 141/82 H 97 06/23/21 15:44 36.1 C 81 16 141/82 H 97
== END 2021-06-23 16:53 | disposition home or self-care (01) ==
LOC: JP.ED 15:14
DX: S30.1XXA Contusion of abdominal wall, initial encounter (principal); F10.129 Alcohol abuse with intoxication, unspecified; K72.90 Hepatic failure, unspecified without coma; I10 Essential (primary) hypertension; E66.9 Obesity, unspecified; Z68.34 Body mass index [BMI] 34.0-34.9, adult; Z87.891 Personal history of nicotine dependence; Z88.6 Allergy status to analgesic agent; Z79.899 Other long term (current) drug therapy; W18.30XA Fall on same level, unspecified, initial encounter; Y92.002 Bathroom of unspecified non-institutional (private) residence as the place of occurrence of the external cause
CPT/HCPCS: 99283; A9270